=== PATIENT | female | born 1970 | race Caucasian/White ===

== ENCOUNTER 2016-12-21 10:51 | Emergency (ER) | payer BC ==
--- NOTE | ~2016-12-21 | CR58 ---
[facility] A Service of [facility] & [facility] RADIOLOGY TEXT RESULTS PATIENT: KENYATTA FISHMAN LOCATION: [facility] : 70 UNIT #: [id number] AGE: [address]: Mague Mancuso SEX: F ORDER DR: [id number] [facility] [address] [place], [place] [address] [id number] MR#: [id number] #: [id number] NAME: KENYATTA FISHMAN. : 1970 SEX: F STUDY DATE/TIME: 12/21/2016 UNIT: [facility] ROOM: STUDY DESCRIPTION: CR Cervical Spine 2 or 3 Views Attending Physician: Mague Mancuso P.A.-C. Ordering Physician: Mague Mancuso P.A.-C. Primary Care Physician: Nithya Smith Aprn MEDICAL IMAGING REPORT This report is preliminary unless electronic signature is present EXAM Cervical spine series 12/21/2016 11:26 hours HISTORY A 46-year-old with complaint of neck pain today. No known injury. COMPARISON None. FINDINGS AP, lateral, open-mouth and lateral swimmers view are performed. The C1-T1 are visualized. There is no prevertebral soft tissue swelling or fracture. There is disc height loss and spurring at C5-6 and C6-7. IMPRESSION Disc height loss, endplate uncovertebral spurring at C5-6 and C6-7. Cervical spine is otherwise negative. Dictated by... Aurora Adams M.D. THIS IS AN ELECTRONICALLY VERIFIED REPORT Aurora Adams M.D. at 12/21/2016 2:26 PM MARIANGEL/nataly TD: 12/21/2016 14:08 JOB #: [id number] MEDICAL IMAGING REPORT Page 1 of 1 COPY
== END 2016-12-21 12:20 | disposition home or self-care (01) ==
LOC: CFTX 10:51 → CED 10:51 → CFTX 12:04
DX: S13.4XXA Sprain of ligaments of cervical spine, initial encounter (principal); K21.9 Gastro-esophageal reflux disease without esophagitis; Z86.718 Personal history of other venous thrombosis and embolism; F17.210 Nicotine dependence, cigarettes, uncomplicated; X58.XXXA Exposure to other specified factors, initial encounter; Y92.9 Unspecified place or not applicable
CPT/HCPCS: 72040; 99283